=== PATIENT | male | born 1970 | race Caucasian/White ===

== ENCOUNTER 2020-02-11 07:54 | Emergency (ER) | payer OTHER ==
[~2020-02-11] VITALS: Ht 190.5 cm; Wt 108.4 kg
--- NOTE | 2020-02-11 07:58 | NUR ---
BIBRA 76 FROM HOME, WOKE UP AT 530AM FEELING DIZZY AND LIGHTHEADED. VOMITED x 1 UNDERWRITING MANAGER, ZOFRAN 4MG ODT GIVEN EN ROUTE. LKWT 1230AM 02/11/2020. TO ER BED 9, HOOKED TO DIRECTOR OF VOCATIONAL GUIDANCE AND POX, CHANGED TO HOSP GOWN, WARM BLANKET PROVIDED, PATIENT AAO x ,4 BREATHING EVEN AND UNLABORED, NOT IN RESPIRATORY DISTRESS. DR MONTOYA AT BEDSIDE FOR EVAL.
[2020-02-11] MEDS ORDERED: ONDANSETRON HCL/PF 4 MG/2 ML VIAL ONE (08:09)
[2020-02-11] MEDS ORDERED: diphenhydrAMINE HCL 50 MG/ML VIAL ONE (08:09)
[2020-02-11] MEDS ORDERED: DIAZEPAM 5 MG/ML 2 ML DISP.SYRIN ONE (08:09)
[2020-02-11 08:23] LABS: BASOPHILS % (AUTO) 0.3 % (0.0-2.0); EOSINOPHILS % (AUTO) 0.1 % (0.0-6.0); HEMATOCRIT 46 % (39-51); HEMOGLOBIN 15.3 g/dL (13.5-17.5); LYMPHOCYTES # (AUTO) 0.8 /CMM (0.8-4.8); LYMPHOCYTES % (AUTO) 8.2 % (20.0-44.0); MEAN CORPUSCULAR HGB CONC 33 g/dl (31.0-36.0); MEAN CORPUSCULAR VOLUME 93 fL (80-96); MONOCYTES # (AUTO) 0.3 /CMM (0.1-1.30); MONOCYTES % (AUTO) 3.4 % (2.0-12.0); NEUTROPHILS # (AUTO) 8.3 /CMM (1.8-8.9); PLATELET COUNT (AUTO) 258 /CMM (150-450); WHITE BLOOD COUNT (AUTO) 9.4 K/uL (4.3-11.0)
[2020-02-11] MEDS ORDERED: DIAZEPAM 5 MG/ML 2 ML DISP.SYRIN IV ONE (08:30)
[2020-02-11] MEDS ORDERED: diphenhydrAMINE HCL 50 MG/ML VIAL IV ONE (08:30)
[2020-02-11] MEDS ORDERED: ONDANSETRON HCL/PF 4 MG/2 ML VIAL IVP ONE (08:30)
[2020-02-11] MEDS ORDERED: IV NS 0.9% 1,000 ML BAG IV ONE (08:30)
--- NOTE | 2020-02-11 08:44 | NUR ---
BACK FROM CT SCAN
[2020-02-11 08:58] LABS: ALBUMIN 3.8 g/dL (3.4-5.0); BILIRUBIN,DIRECT 0.1 mg/dL (0.0-0.2); BILIRUBIN,TOTAL 0.2 mg/dL (0.2-1.0); CALCIUM, SERUM 8.9 mg/dL (8.5-10.1); POTASSIUM 3.8 mmol/L (3.5-5.1); TOTAL PROTEIN, SERUM 7.8 g/dL (6.4-8.2)
--- NOTE | 2020-02-11 10:34 | NUR ---
IV removed. Catheter intact and site benign. Pressure and 4x4 applied to site. No bleeding noted.Patient discharged to home in stable condition. Written and verbal after care instructions given. Patient verbalizes understanding of instruction. Instructed not to drive
[2020-02-11 10:35] VITALS: BP 136/87
== END 2020-02-11 10:35 | disposition home or self-care (01) ==
LOC: ER 07:58
DX: R42 Dizziness and giddiness (principal); R11.0 Nausea
CPT/HCPCS: 36415; 70450; 71045; 80048; 80076; 82962; 85025; 93005; 96361; 96374; 96375; 99285; J1200; J2405; J3360; J7030